=== PATIENT | male | born 1975 | race Caucasian/White ===

== ENCOUNTER 2019-01-06 12:02 | Outpatient (CLI) | payer OTHER ==
--- NOTE | 2019-01-06 14:23 | ULT ---
TESTICULAR ULTRASOUND: 01/06/2019 HISTORY: Right testicular swelling for one month. FINDINGS: The testicles demonstrate a symmetric appearance bilaterally, without evidence of a testicular mass. Color-flow evaluation does demonstrate symmetric flow within each testicle. Doppler evaluation of e ach testicle with spectral analysis and color-flow evaluation demonstrates arterial and venous flow i n each testicle. The epididymides demonstrate a normal sonographic appearance bilaterally. There is no evidence of a hydrocele. IMPRESSION: 1. Normal appearing bilateral testicles without evidence of a testicular mass. 2. Arterial flow is documented in each testicle. 3. No evidence of a hydrocele. POS: [facility]
== END 2019-01-06 12:03 | disposition home or self-care (01) ==
LOC: BICULT 12:02
PROVIDERS: ATTEND Nurse Practitioner
DX: N50.89 Other specified disorders of the male genital organs (principal)
CPT/HCPCS: 76870; 93976

== ENCOUNTER 2020-09-13 14:05 | Outpatient (CLI) | payer OTHER ==
--- NOTE | 2020-09-14 12:33 | EEG ---
DATE OF SERVICE: DESCRIPTION OF THE RECORD: Waking background is medium amplitude 10 hertz alpha frequency. The patient became drowsy during the study. Photic stimulation and hyperventilation were unremarkable. No epileptiform features were present. IMPRESSION: This is a normal awake and drowsy EEG. Job ID: [id number]
== END 2020-09-13 14:06 | disposition home or self-care (01) ==
LOC: EEG 14:05
PROVIDERS: ATTEND Psychiatry & Neurology Neurology
DX: Z86.69 Personal history of other diseases of the nervous system and sense organs (principal)
CPT/HCPCS: 95822